=== PATIENT | female | born 1985 | race Hispanic/Latino ===

== ENCOUNTER 2018-04-23 09:02 | Inpatient (IN) | payer MEDICARE ==
[~2018-04-23] VITALS: Ht 167.6 cm; Wt 77.2 kg
[2018-04-23] MEDS ORDERED: MORPHINE SULFATE 2 MG/ML 1ML SYG IVP PRN (11:15)
[2018-04-23] MEDS ORDERED: MORPHINE SULFATE 2 MG/ML 1ML SYG ONE (11:31)
[2018-04-23 12:51] VITALS: BP 102/67
[2018-04-23] MEDS ORDERED: SODIUM CHLORIDE 0.9% 1000ML 1,000 ML IV SCH (13:00)
[2018-04-24] MEDS ORDERED: PANTOPRAZOLE SODIUM 40 MG TABLET.DR PO SCH (09:00)
== END 2018-04-23 15:23 | disposition left against medical advice (07) | DRG 395 ==
LOC: EDH 09:02 → EDHIP 10:53 → 4AH 12:26
PROVIDERS: ADMIT Hospitalist; ATTEND Hospitalist
DX: T18.5XXA Foreign body in anus and rectum, initial encounter (principal); F14.90 Cocaine use, unspecified, uncomplicated; F17.200 Nicotine dependence, unspecified, uncomplicated; F43.10 Post-traumatic stress disorder, unspecified; F31.9 Bipolar disorder, unspecified; Z53.21 Procedure and treatment not carried out due to patient leaving prior to being seen by health care provider; Z98.51 Tubal ligation status; X58.XXXA Exposure to other specified factors, initial encounter; Y93.89 Activity, other specified; Y92.89 Other specified places as the place of occurrence of the external cause; Y99.8 Other external cause status
CPT/HCPCS: 74021; J7030